=== PATIENT | male | born 1970 | race Caucasian/White ===

== ENCOUNTER 2019-02-18 08:10 | Outpatient (CLI) ==
[2015-08-25 13:29] VITALS: BMI 35.2
--- NOTE | 2019-02-18 09:52 | MRI ---
Examination: MRI of the cervical spine without contrast 02/18/2019 Clinical information: Cervical disc degeneration. Comparison: None. TECHNIQUE: Sagittal and axial T1 and T2W imaging, sagittal STIR, coronal T2 and axial 3-D T2W sequen vickie were performed. FINDINGS: Examination is patient motion degraded. The craniocervical junction is unremarkable. The cervical spinal cord is normal in overall signal, size and morphology. There are 2 mm retrolisthese s of C3 on C4, C4 on C5, C5 on C6 and C6 on C7. There is a reverse S-shaped cervicothoracic scoliosi s. The cervical vertebral bodies are normal in height and intrinsic marrow signal intensity. Severe loss of disc height at C3-C4 through C6-C7 with discogenic endplate irregularity and ventral spondyl osis. No unusual marrow edema. No paravertebral edema is seen. At the C2-C3 level, there is a minimal disc bulge. No central spinal canal stenosis or foraminal hill nosis. At the C3-C4 level, there is a broad-based posterior disc/osteophyte complex which contacts and noemi ens the cord causing mild central spinal canal stenosis. Severe right greater than left foraminal st enosis due to uncovertebral hypertrophy. At the C4-C5 level, there is a broad-based posterior disc/osteophyte complex eccentric right which in dents the cord. There is mild-moderate central spinal canal stenosis. There is mild right facet hyp ertrophy. There is moderate right neural foraminal stenosis. At the C5-6 level, there is a broad-based posterior disc/osteophyte complex which contacts and slight ly flattens the cord causing mild central spinal canal stenosis. There is severe bilateral foraminal stenosis due to uncovertebral hypertrophy. At the C6-C7 level, there is a broad-based posterior disc/osteophyte complex which partially effaces the ventral CSF space. No significant central spinal canal stenosis. There is severe bilateral fora chelsey stenosis due to uncovertebral hypertrophy. At the C7-T1 level, there is mild left hypertrophic facet arthropathy. No central spinal canal steno sis or foraminal stenosis. Impression: 1. Multilevel degenerative spondylosis with dorsal spondylotic ridging. Mild C3-C4, mild-moderate C 4-C5, and mild C5-6 central spinal canal stenosis. Posterior disc/osteophyte complexes at C3-C4, C4- C5 and C5-6 deform the cord. 2. Multilevel foraminal stenosis as noted level by level. 3. Reverse S-shaped cervicothoracic scoliosis. Trace retrolistheses of C3 on C4, C4 on C5, C5 on C6 and C6 on C7.
--- NOTE | 2019-02-18 12:44 | DI ---
EXAM: Cervical spine three views HISTORY: Cervical disc degeneration. FINDINGS: There is mild reversal normal cervical lordosis. No fracture or loss of vertebral body he ight. No spondylolisthesis or noticeable scoliosis. Lateral masses of C1 and C2 are normally align ed and the odontoid process is intact. Mild to moderate degenerative disc disease extends throughout most of the spine most apparent at C5/C6 and C6/C7. There are anterior nearly bridging osteophytic spurs. IMPRESSION: 1. Diffuse degenerative changes of the cervical spine.
== END 2019-02-18 08:11 | disposition home or self-care (01) ==
LOC: RAD 08:10
PROVIDERS: ATTEND Pain Medicine Interventional Pain Medicine
DX: M50.31 Other cervical disc degeneration, high cervical region (principal); M50.320 Other cervical disc degeneration, mid-cervical region, unspecified level; M50.33 Other cervical disc degeneration, cervicothoracic region; M47.812 Spondylosis without myelopathy or radiculopathy, cervical region; M47.813 Spondylosis without myelopathy or radiculopathy, cervicothoracic region

== ENCOUNTER 2019-06-21 18:04 | Inpatient (IN) ==
[2019-06-21] MEDS ORDERED: VANCOMYCIN 1 GM in SODIUM CHLORIDE 250 ML IV STA (18:11)
[2019-06-21] MEDS ORDERED: ZOSYN 3.375 GM 3.375 GM in SODIUM CHLORIDE 50 ML IV STA (18:11)
--- NOTE | 2019-06-21 18:15 | ED.PDOC ---
General ED Provider: Dr. ANA LILIA MARTINEZ Chief Complaint: Wound Check Stated Complaint: 2 week history of elevated blood glucose and left foot ulcer. Time Seen by Physician: 18:10 Information Source: Patient Nursing and Triage Documentation Reviewed and Agree: Yes Does patient meet sepsis criteria?: No System Inflammatory Response Syndrome: Not Applicable Sepsis Protocol: For patient's 13 years and over: Temp is 96.8 and below OR 101 and greater Pulse >90 BPM Resp >20/minute Acutely Altered Mental Status Are patient's symptoms suggestive of a new infection, such as: -Pneumonia -Skin, Soft Tissue -Endocarditis -UTI -Bone, Joint Infection -Implantable Device -Acute Abdominal Infection -Wound Infection -Meningitis -Blood Stream Catheter Infection -Unknown Skin Complaint Exam - Skin/Soft Tissue Complaint/Exam Onset/Duration: 2 weeks Symptoms Are: Still present Timing: Constant Initial Severity: Mild Current Severity: Mild Location: Right ball of foot planta surface Character: Reports: Painful (only mild ) Aggravating: Reports: Touch Associated Signs and Symptoms: Reports: Drainage (mild ) Related History: Denies: Similar episode, Recent trauma, Foreign body, Insect bite/sting, Recent Med change, Prior MRSA/VRE, Recent inpatient, Recent travel, Immunocompromised Recent Exposure to Others w/Similar Symptoms: No Skin Findings: Present: Erythema (on the lower leg ), Wet ulceration (Measuring 3 cm in diameter with surrounding masarasion of about 1.5 cm insize. No significant tenderness. No increased drainage with palpation. ) Differential Diagnoses: Cellulitis, Infection, Other (Diabetic foot ulcer. ) Review of Systems - Review Of Systems Constitutional: Reports: No symptoms Eyes: Reports: No symptoms Ears, Nose, Mouth, Throat: Reports: No symptoms Respiratory: Reports: No symptoms Cardiac: Reports: No symptoms GI: Reports: No symptoms : Reports: No symptoms Musculoskeletal: Reports: No symptoms Skin: Reports: Lesions Neurological: Reports: Anxiety Endocrine: Reports: No symptoms Hematologic/Lymphatic: Reports: No symptoms All Other Systems: Reviewed and Negative Past Medical History - Past Medical History Endocrine: Reports: None Cardiovascular: Reports: None Respiratory: Reports: Other (facial injury) Hematological: Reports: None Gastrointestinal: Reports: None Genitourinary: Reports: None Neuro/Psych: Reports: Other (Traumatic brain injury with reconstruction.) Musculoskeletal: Reports: None Cancer: Reports: None Other Pertinent Past Medical History: claritin, aleve, tylenol, Traumatic brain injury with reconstruction. - Surgical History General Surgical History: Reports: Other (Traumatic brain injury with facial reconstruction.) - Family History Family History: Reports: Unknown - Social History Smoking Status: Current every day smoker, Light tobacco smoker Hx Substance Use: No Alcohol Screening: Heavy Physical Exam - Physical Exam Appearance: Ill-appearing Ill-appearing: Moderate Pain Distress: Mild Eyes: NISHA, EOMI, Conjunctiva clear Neck: Supple Respiratory: Airway patent, Breath sounds clear, Breath sounds equal, Respirations nonlabored Cardiovascular: RRR, Pulses normal, No rub, No murmur GI/: Soft, Nontender, No masses, Bowel sounds normal, No Organomegaly Musculoskeletal: Normal strength, ROM intact, No edema, No calf tenderness Skin: Warm, Dry Neurological: Alert, Oriented Psychiatric: Anxious Re-Evaluation - Re-Evaluation Status: Improved Vital Signs Stable: Yes Physician Notification - Case Discussed Physician Notified: Dr Lilly Critical Care Note - Critical Care Note Total Time (mins): 60 Course - Course Hematology/Chemistry: 06/22/19 05:00 06/22/19 05:00 Orders, Labs, Meds: Lab Review 06/21/19 06/21/19 06/21/19 18:28 18:28 18:28 WBC 11.41 H RBC 4.57 L Hgb 14.5 Hct 42.7 MCV 93.4 MCH 31.7 H MCHC 34.0 RDW Coeff of Eddie 12.2 Plt Count 327 Immature Gran % (Auto) 0.3 Neut % (Auto) 63.0 Lymph % (Auto) 25.0 Avery % (Auto) 6.6 Eos % (Auto) 4.1 Baso % (Auto) 1.0 Immature Gran # (Auto) 0.0 Neut # (Auto) 7.2 H Lymph # (Auto) 2.9 Avery # (Auto) 0.8 Eos # (Auto) 0.5 Baso # (Auto) 0.1 ESR Sodium 137.7 Potassium 3.93 Chloride 102.9 Carbon Dioxide 28.0 Anion Gap 10.73 BUN 12.0 Creatinine 0.63 Estimated GFR (MDRD) 135.00 BUN/Creatinine Ratio 19.04 Glucose 180.9 H Hemoglobin A1c Lactic Acid Calcium 8.97 Total Bilirubin 0.45 AST 43.1 ALT 32.8 Alkaline Phosphatase 129.8 H C-Reactive Prot, Quant Total Protein 7.67 Albumin 3.98 Globulin 3.69 Albumin/Globulin Ratio 1.07 Procalcitonin < 0.05 06/21/19 06/21/19 06/21/19 18:28 18:28 18:28 WBC RBC Hgb Hct MCV MCH MCHC RDW Coeff of Eddie Plt Count Immature Gran % (Auto) Neut % (Auto) Lymph % (Auto) Avery % (Auto) Eos % (Auto) Baso % (Auto) Immature Gran # (Auto) Neut # (Auto) Lymph # (Auto) Avery # (Auto) Eos # (Auto) Baso # (Auto) ESR 38 H Sodium Potassium Chloride Carbon Dioxide Anion Gap BUN Creatinine Estimated GFR (MDRD) BUN/Creatinine Ratio Glucose Hemoglobin A1c 8.82 H Lactic Acid 1.21 Calcium Total Bilirubin AST ALT Alkaline Phosphatase C-Reactive Prot, Quant Total Protein Albumin Globulin Albumin/Globulin Ratio Procalcitonin 06/21/19 18:53 WBC RBC Hgb Hct MCV MCH MCHC RDW Coeff of Eddie Plt Count Immature Gran % (Auto) Neut % (Auto) Lymph % (Auto) Avery % (Auto) Eos % (Auto) Baso % (Auto) Immature Gran # (Auto) Neut # (Auto) Lymph # (Auto) Avery # (Auto) Eos # (Auto) Baso # (Auto) ESR Sodium Potassium Chloride Carbon Dioxide Anion Gap BUN Creatinine Estimated GFR (MDRD) BUN/Creatinine Ratio Glucose Hemoglobin A1c Lactic Acid Calcium Total Bilirubin AST ALT Alkaline Phosphatase C-Reactive Prot, Quant 10 Total Protein Albumin Globulin Albumin/Globulin Ratio Procalcitonin Orders Category Date Time Status ACTIVITY .Up ad Corina CARE 06/21/19 19:50 Active BLOOD GLUCOSE MONITORING 0630,1100,1700,2100 CARE 06/21/19 19:50 Active GIVE HS SNACK 2100 CARE 06/21/19 19:52 Active INCISION/WOUND CARE Q12HR CARE 06/21/19 19:49 Active INTAKE & OUTPUT Q8HR CARE 06/21/19 19:50 Active VITAL SIGNS Q8HR CARE 06/21/19 19:50 Active ADA 1800 SUZANNE. DIET DIETARY 06/21/19 Breakfast Completed HS SNACK DIETARY 06/21/19 Dinner Completed ED APPLY O2 .ONCE EMERGENCY 06/21/19 18:12 Active ED ATTENDANT ARCADE APPLIED .ONCE EMERGENCY 06/21/19 18:12 Active ED VITAL SIGNS Q1HR EMERGENCY 06/21/19 18:12 Completed BASIC METABOLIC PANEL DAILY@0600 LAB 06/22/19 05:00 Completed BLOOD CULTURE Stat LAB 06/21/19 18:28 Results C-REACTIVE PROTEIN Stat LAB 06/21/19 18:53 Completed CBC W/ AUTO DIFF DAILY@0600 LAB 06/22/19 05:00 Completed CBC W/ AUTO DIFF Stat LAB 06/21/19 18:28 Completed COMPREHENSIVE METABOLIC PANEL Stat LAB 06/21/19 18:28 Completed ESR Stat LAB 06/21/19 18:28 Completed HEMOGLOBIN A1C Stat LAB 06/21/19 18:28 Completed LACTIC ACID Stat LAB 06/21/19 18:28 Completed POS BC ID AND VINICIO Stat LAB 06/21/19 18:53 Received PROCALCITONIN Stat LAB 06/21/19 18:28 Completed Acetaminophen [Tylenol] MEDS 06/21/19 19:49 Discontinued 650 mg PO Q4H PRN Enoxaparin Sodium [Lovenox] MEDS 06/22/19 09:00 Discontinued 40 mg SUBCUT DAILY Insulin Glargine,Hum.rec.anlog [Lantus] MEDS 06/21/19 21:00 Discontinued 10 unit SUBCUT BEDTIME Metformin HCl [Glucophage] MEDS 06/21/19 20:00 Discontinued 500 mg PO BIDWM Ondansetron HCl/Pf [Zofran 4 mg/2 ml] MEDS 06/21/19 19:49 Discontinued 4 mg IVP Q6H PRN Oxycodone-Acetaminophen 10-325 [Percocet 10-325] MEDS 06/21/19 19:53 Discontinued 0 tab PO TID PRN Piperacillin Sodium/Tazobactam [Zosyn 3.375 gm] 3.375 MEDS 06/21/19 18:11 Discontinued gm 0.9 % Sodium Chloride [Sodium Chloride] 50 ml IV ONCE Sodium Chloride 0.9% [Sodium Chloride] 1,000 ml MEDS 06/21/19 20:00 Discontinued IV 150 mls/hr Vancomycin HCl [Vancomycin] 1 gm MEDS 06/21/19 18:11 Discontinued 0.9 % Sodium Chloride [Sodium Chloride] 250 ml IV ONCE RESUSCITATION STATUS Routine OTHERS 06/21/19 19:[address] FOOT LEFT WITHOUT CONTRAST Stat RADS 06/21/19 18:19 Completed FOOT, LEFT 3 VIEWS Stat RADS 06/21/19 19:04 Completed Medications Discontinued Medications Generic Name Dose Route Start Last Admin Trade Name Lo PRN Reason Stop Dose Admin Acetaminophen 650 mg 06/21/19 19:49 Tylenol PO Q4H PRN Fever > 102 Diazepam 5 mg 06/21/19 21:41 06/21/19 22:30 Valium PO 06/21/19 21:42 5 mg ONCE STA Administration Enoxaparin Sodium 40 mg 06/22/19 09:00 06/22/19 08:40 Lovenox SUBCUT Not Given DAILY VENKAT Piperacillin Sod/Tazobactam 50 mls @ 50 mls/hr 06/21/19 18:11 06/21/19 20:58 Sod 3.375 gm/ Sodium Chloride IV 06/21/19 19:10 50 mls/hr ONCE STA Administration Vancomycin HCl 1 gm/ Sodium 250 mls @ 250 mls/hr 06/21/19 18:11 06/21/19 19: 04 Chloride IV 06/21/19 19:10 250 mls/hr ONCE STA Administration Sodium Chloride 1,000 mls @ 150 mls/hr 06/21/19 20:00 06/22/19 08:43 Sodium Chloride IV Not Given .Q6H40M VENKAT Cefepime HCl 2 gm/ Sodium 50 mls @ 50 mls/hr 06/21/19 22:30 06/22/19 04:27 Chloride IV 06/28/19 22:29 50 mls/hr Q8HR VENKAT Administration Vancomycin HCl 2 gm/ Sodium 500 mls @ 125 mls/hr 06/22/19 06:00 06/22/19 06: 00 Chloride IV 06/25/19 05:59 125 mls/hr Q12H VENKAT Administration Vancomycin HCl 2 gm/ Sodium 500 mls @ 125 mls/hr 06/22/19 21:00 Chloride IV 06/25/19 05:59 Q12HR VENKAT CEFEPIME 2 GM PREMIX 2 gm/ 50 mls @ 75 mls/hr 06/22/19 13:00 Dextrose IV 06/28/19 22:29 Q8HR VENKAT Insulin Glargine 10 unit 06/21/19 21:00 06/21/19 21:49 Lantus SUBCUT 10 unit BEDTIME VENKAT Administration Lisinopril 20 mg 06/22/19 09:00 06/22/19 08:40 Zestril PO 20 mg DAILY VENKAT Administration Metformin HCl 500 mg 06/21/19 20:00 06/22/19 08:40 Glucophage PO 500 mg BIDWM VENKAT Administration Nicotine 1 patch 06/21/19 22:00 06/22/19 10:05 Nicoderm 21 Mg TD 1 patch DAILY VENKAT Administration Ondansetron HCl 4 mg 06/21/19 19:49 Zofran 4 Mg/2 Ml IVP Q6H PRN Nausea / Vomiting Oxycodone/Acetaminophen 0 tab 06/21/19 19:53 Percocet 10-325 PO TID PRN severe pain Oxycodone/Acetaminophen 1 tab 06/21/19 22:13 Percocet 10-325 PO TID PRN severe pain Tetanus/Diphtheria Toxoids Adsorbed 0.5 ml 06/22/19 08:53 06/22/19 09:46 Tenivac IM 06/22/19 08:54 0.5 ml .ONCE ONE Administration Vital Signs: Temp Pulse Resp BP Pulse Ox 06/21/19 18:05 97.3 F L 92 H 20 153/89 H 6 L Departure - Departure Time of Disposition: 19:54 Disposition: ADMITTED INPATIENT Discharge Problem: Wound of foot, Cellulitis of left lower limb Diabetes mellitus Qualifiers: Diabetes mellitus type: type 2 Diabetes mellitus shelter insulin use: without dedicated intermodal truck driver use Diabetes mellitus complication status: with skin complications Diabetes mellitus complication detail: with foot ulcer Qualified Code(s): E11.621 - Type 2 diabetes mellitus with foot ulcer Condition: Stable Pt referred to PMD for follow-up: Yes IPMP verified?: No Allergies/Adverse Reactions: Allergies No Known Allergies Allergy (Verified 06/21/19 18:18) Home Medications: Ambulatory Orders Loratadine/Pseudoephedrine [Claritin-D 24 Hour Tablet] 1 each PO DAILY #30 tab.er.24h 08/25/15 Oxycodone HCl/Acetaminophen [Percocet 10-325 mg Tablet] 1 each PO TID PRN Amoxicillin/Potassium Clav [Augmentin 875-125 Tablet] 1 each PO BID 7 Days #14 tablet 06/22/19 Aspirin [Aspirin EC] 81 mg PO DAILY 30 Days #30 tablet. 06/22/19 Atorvastatin Calcium [Lipitor] 40 mg PO DAILY 30 Days #30 tablet 06/22/19 Ertugliflozin Pidolate [Steglatro] 5 mg PO DAILY 30 Days #30 tablet 06/22/19 Lisinopril/Hydrochlorothiazide [Zestoretic 20-12.5 mg Tablet] 1 each PO DAILY 30 Days #30 tablet 06/22/19 Metformin HCl 1,000 mg PO DIRECTED 30 Days #60 tablet 06/22/19 Nicotine 21 mg [Nicoderm 21 mg] 1 patch TD DAILY 14 Days #14 patch.td24 Sulfamethoxazole/Trimethoprim [Bactrim Ds 800/160 mg] 1 tab PO BID 7 Days #14 tablet 06/22/19
[2019-06-21 18:18] VITALS: BMI 31.5
--- NOTE | 2019-06-21 19:32 | CT ---
EXAM: Helical CT of the left foot without contrast. HISTORY: Diabetic foot ulcer, possible deep tissue injury COMPARISON: Foot radiographs from same day. FINDINGS: Remote destructive/erosive changes are seen centered at the fifth DIP joint. The cortical margins of the bony deformity appears smooth. Shown to better advantage on same day foot radiograph. No evidence of displaced fracture or dislocation is seen. Joint spaces and alignment appear grossl y preserved. Ankle mortise appears congruent. The talar dome has a normal contour. Mild soft tissue swelling at the ankle is seen. No evidence of focal fluid collection is seen. No evidence of subcu taneous gas is seen. OPINION: Chronic-appearing osseous erosion/destruction at the fifth DIP joint with smooth cortical margins. C orrelate with old injury or infection. Comparison with prior imaging would be helpful. If there is concern for acute osteomyelitis. Recommend MRI for further evaluation. No displaced fracture or dislocation. Mild soft tissue swelling at the ankle.
--- NOTE | 2019-06-21 19:48 | DI ---
EXAM: Left foot three views HISTORY: Abnormal CT, wound on foot. FINDINGS / IMPRESSION: There is absence of the distal aspect of the fifth proximal phalanx which ma y be related to old injury. An infectious destructive process at this level is not excluded. No kasey or studies were available for comparison. 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 No gross soft tissue gas collection or radiopaque foreign body.
[2019-06-21] MEDS ORDERED: ZOFRAN 4 MG/2 ML IVP PRN (19:49)
[2019-06-21] MEDS ORDERED: TYLENOL PO PRN (19:49)
[2019-06-21] MEDS ORDERED: PERCOCET 10-325 PO PRN ×2 (19:53→22:13)
[2019-06-21] MEDS: SODIUM CHLORIDE 1,000 ML IV SCH (20:38)
[2019-06-21] MEDS ORDERED: LANTUS SUBCUT SCH (21:00)
--- NOTE | 2019-06-21 21:00 | PCM ---
- Chief Complaint Chief Complaint: New onset Diabetes, Diabetes foot ulcer. - History of Present Illness History of Present Illness: 49 yo male presented to ED for wound check 18:13 06/21/[address] Macias. No primary provider. Arrived via ambulatory status, infromation obtained from patient. Vitals in ED were temp 97.3, pulse 92, rr 20, bp 153/89, pulse ox 96% on RA (accidental 6%). CBC mild elevation with 11.41, hgb 14.5, plt 327, neutrophilia listed at 7.2 CMP showed sodium 137.7, K+ 3.93, cl 102,9 , co2 28, gap 10.73, cr 0.63, gfr 135, glucose 180.9, Lactate negative at 1.21, Procalcitonin negative at <.05. Calcium normal 8.97. Alk phos up minimally at 129.8. ESR was up at 38 and A1C 8.82. Patient never dx w/ diabetes before, newly diagnosed today with a1c >6.5. He was found to have a wound on the right ball of the foot plantar surface, painful minimally, aggravated by touch and by pressure, draining, still present currently. No previou sissues/episodes, no trauma, no foreign bod, no bites/stings, no med changes, no history of MRSA historically. The patient has erythema of the lower leg, wet ulceration 3cm diameter, macerated 1.5 cm beyond that. No tenderness, no drainage/palpation. DDx in ED cellulitis vs infection of DM foot ulcer. History of TBI with reconstruction of face. Current light tobacco user. Vitals did not meet SIRS criteria, nor did the WBC. He was given tylenol in ED, lovenox was given for hosptial stay. I was contacted by DR. Macias at 1945 and discussed case 1:1. Patient will get 10 units of lantus tonight. He will also get metformin 500 BID to start now. CT of foot was done and reviewed and chronic appearing ossesous erosion/destruction of the fifth DIP joint with smooth cortical margins. Correlate with old injury or infection. Comparison with prior iamging would be helpful. IF there is concern for acute osteomyelitis recommend MRI for further eval. Xray of foot was completed absence of distal aspect of fifth proximal phalanx may be old injury. Infectious destructive process not excluded. No previous studies. Mild OA of IP joints. NO gross soft tissue gas or foreign body noted. Patient was given percocet 10 po TID for pain, he was given zosyn 3.375 grams and vanco 1 gram in the ED. Due to risks on renal function, I will stop the zosyn and I will change him to cefepime 2grams q 8 hours and continue vanco 1gram BID (15-20mg/kg q 8-12 hours). I will make sure wound cultures are collected, will likely d/c on bactrim DS and augmentin 875 BID to cover for staph/strep, MRSA, aerobic gram negatives and anaerobic bacteria. He will need close f/u, diabetic education, glucometer, walking boot to offload that foot, outpatient referral to podiatry and likely wound care. Regarding DM, I believe that he would benefit from SGLT2 and from GLP1 with metformin, I will add lisinopril to him as his BP is mildly elevated as well. We will check microalbumin. I will make sure that his tetanus status is up to date. He has declined pneumonia vaccine despite R/B/A to this agent. We will also check a lipid panel in the am and likely start him on statin. Patient seen in room 216 06/21/19 9:12 pm. Here with tameka (mariannaece), her daughter brenna and partner Hazel. Patient has been diabetic for a while. follows with pain management q 3 months. Last visit here was 2013 or 2014. The patient met with a provider in [place] but could not remember her name. He met with them 2 years ago for DM but never f/u with them. He has history of TBI with reconstruction. the patietn has never been dx with diabetes. He has been checking his sugars. Fasting sugars in the am 230. Niece found about his ulcer on his left foot today but it has been present for 2 weeks. He smokes about 1 pack per day. He is not interested in quitting, he is not interested in nicotine patches. I asked him what he thought about his health and he is unreal about his expectations. The patient and I talked about the lack of circulation, the poor sugar control, will lead to loss of toe/foot/knee. Discussed nicotine at length. He noted several times "I will go out and smoke no matter what you say." I discussed we are smoke free campus and noted that if he leaves to smoke, we would consider him AMA. He noted he did not care and he would leave anyway. I talked with them for 15 minutes today about need to think about overall health, foot health, diabetes, HTN. He just lost his twin brother to DM/HTN/Hyperlipidemia. ?H/o Seizures. I discussed need for compliance, need for being on board with medical therapy. He noted that he was not going to quit smoking no matter what I said and he would go smoke now. I discussed that tobacco issues have led to his foot care. He was not able to care about this and did not want to focus on his overall health. After leaving room, niece came out and noted that if I gave a valium and a nicotine patch he would take the patch and try to stay. I placed these orders in good-alex effort to help patient. We will get foot culture, we will place 21mg nicotine patch, valium 5mg once. He noted he will leave this hospital to smoke if he feels he needs to. - Review of Systems Constitutional: chills, fatigue. No: fever, weakness, sweats, loss of appetite , other Eyes: No: blurred vision, double-vision, discharge, itching, pain, redness, photophobia, other Ears: No: pain, bleeding, drainage, ringing, hearing loss, other Nose: No: bleeding, congestion, discharge, other Throat: No: pain, swelling, voice change, other Mouth: No: bleeding, pain, swelling, other Respiratory: No: cough, shortness of air, wheeze, hemoptysis, pain with breathing, other Cardiovascular: No: chest pain, left arm pain, diaphoresis, PND, orthopnea, edema, palpitations, syncope, other Gastrointestinal: nausea. No: abdominal pain, vomiting, diarrhea, melena, hematemesis, hematochezia, dysphagia, constipation, other Genitourinary: No: dysuria, hematuria, frequency, incontinence, flank pain, penile discharge, testicular pain, testicular swelling, other Neurological: headache, dizziness, numbness. No: seizure, weakness, speech difficulty, problems with walking, tremor, fainting, other Musculoskeletal: pain. No: swelling in joints, other Skin: wounds. No: rash, pruritus, lacerations, bruising, other Immunology: No: hives, itching, frequent infections, difficulty healing, other Hematology: No: easy bruising, easy bleeding, swollen glands, other Endocrine: excessive thirst, polyuria. No: weight changes, cold intolerance, heat intolerance, excessive hunger, other Psychiatric: No: depression, anxiety, sleeplessness, hopelessness, suicidal, hallucinations, other Habits: tobacco use. No: substance use, alcohol use, other - Past Medical History Past Medical History: Hyperglycemia, TBI with facial reconstruction, chronic tobacco, elevated blood pressure. ?h/o seizures. Poor health, non compliance. dizzy spells, LAYNE, migraines, light sensitivity. Short term memory loss. - Past Surgical History Past Surgical History: TBI with reconstruction. - Allergies Allergies/Adverse Reactions: Allergies Allergy/AdvReac Type Severity Reaction Status Date / Time No Known Allergies Allergy Verified 06/21/19 18:18 - Medications Medications: Medications Generic Name Dose Route Start Last Admin Trade Name Freq PRN Reason Stop Dose Admin Acetaminophen 650 mg 06/21/19 19:49 Tylenol PO Q4H PRN Fever > 102 Enoxaparin Sodium 40 mg 06/22/19 09:00 Lovenox SUBCUT DAILY [facility] Piperacillin Sod/Tazobactam 50 mls @ 50 mls/hr 06/22/19 00:00 Sod 3.375 gm/ Sodium Chloride IV 06/25/19 00:00 Q6HR VENKAT Vancomycin HCl 1 gm/ Sodium 250 mls @ 125 mls/hr 06/22/19 09:00 Chloride IV 06/25/19 08:59 Q12HR VENKAT Sodium Chloride 1,000 mls @ 150 mls/hr 06/21/19 20:00 06/21/19 20:38 Sodium Chloride IV 150 mls/hr .Q6H40M VENKAT Administration Insulin Glargine 10 unit 06/21/19 21:00 Lantus SUBCUT BEDTIME VENKAT Metformin HCl 500 mg 06/21/19 20:00 Glucophage PO BIDWM VENKAT Ondansetron HCl 4 mg 06/21/19 19:49 Zofran 4 Mg/2 Ml IVP Q6H PRN Nausea / Vomiting Oxycodone/Acetaminophen 0 tab 06/21/19 19:53 Percocet 10-325 PO TID PRN severe pain - Family History Past Family History: Twin brother recently wiht DM/HTN/hyperlipidemia. - Social History Past Social History: Lives at home alone with bull dog Andres. Tobacco use 1 ppd. - Body Composition Height: 6 ft 1 in Weight: 238 lb 12.17 oz Body Mass Index (BMI): 31.5 - Physical Examination HEENT: Vital Signs - 24 hr 06/21/19 06/21/19 06/21/19 18:05 20:17 21:43 Temperature 97.3 F L 98.0 F 98.0 F Pulse Rate 92 H 85 85 Respiratory 20 20 20 Rate Blood Pressure 153/89 H 176/97 H O2 Sat by Pulse 6 L 99 99 Oximetry 06/22/19 05:14 Temperature 97.9 F Pulse Rate 84 Respiratory 18 Rate Blood Pressure 164/93 H O2 Sat by Pulse 98 Oximetry Constitutional: Appearance-No acute distress, Consistent with stated age. Orientation- Oriented x 3, alertGait-Normal pace, normal arm movement. Build and Nutrition-[Obese BMI 31.5. ] General- Patient is pleasant and cooperative with the interview and exam.Numerous tattoo. Integumentary: General-No rashes, ulcers or lesions. Palpation- Normal skin moisture/turgor. Skin is warm to touch, appropriate. Capillary refill is normal bilateral Upper and lower extremity. Numerous Tattoo. Head/Neck: Head- normocephalic and atraumatic. Neck- without visible/palpable lumps or pulsations. Palpation- No bony tenderness about head/neck along frontal, occipital, temporal, parietal, mastoid, jawline, zygoma, orbit or any other location. NO temporal artery tenderness. No TMJ tenderness. Neck Supple. Thyroid-No thyromegaly, no nodules Eye: Bilaterally PERRLA, EOMI. No discharge. Upper and lower eyelids are normal. Sclera/conjunctiva normal without discharge. Cornea is normal and clear. Lens is normal. Eyeball appears normal. No ciliary flushing, no conjunctival injection. +Glasses ENMT: Pinna- normal without tenderness or erythema. External auditory canal Left- normal without erythema or discharge, no excessive cerumen. External auditory canal Right-normal without erythema or discharge, no excessive cerumen. TM left- [place]/pearly, normal light reflex and anatomy TM Right- [place]/ pearly, normal light reflex and anatomy Hearing Assessment-normal to conversational speech. Nose and sinus- No sinus tenderness along frontal/ maxillary region. External appearance normal and midline. Nares- bilateral quiet airflow, no discharge. Nasal mucosa- No bleeding noted and no ulcerations observed. [place], moist. Turbinates non boggy. Lips- normal color, moist without cracks/lesions Oral Cavity/Palate- hard/soft palate intact without lesions, oral mucosa pink and moist. Tongue normal midline. Oropharynx- no pharyngeal erythema, Uvula midline. No post nasal drip. No exudate. Salivary glands- Non tender to palpation CHEST/LUNG: Inspection- symmetric chest wall no pectus deformity. Normal effort , no distress, no use of accessory muscles. Palpation- nontender sternum, ribline. No abnormal pulsations. Auscultation- Breath sounds normal throughout all lung [place]. Normal tracheal sounds, Normal bronchial sounds overlying sternum, Bronchovessicular sounds normal between scapulae posteriorly, Normal vessicular breath sounds heard throughout periphery. Lungs are clear today. Adventitious sounds- No wheezes, rales, rhonchi. CARDIOVASCULAR: Carotid artery- normal, no bruits or abnormal pulsations. Jugular vein- no pulsations. Palpation/Percussion- Normal PMI, no palpable thrill Auscultation- Regular rate and rhythm. No murmur noted in sitting, supine positions. Extremities- no digital clubbing, cyanosis, edema, increased warmth. ABDOMEN: Inspection- normal and no visible pulsations. Normal contour. Auscultation- Bowel sounds normal, no abdominal bruits. Palpation/Percussion- soft, non-tender, no rebound tenderness, no rigidity (guarding), no jar tenderness, no masses. Liver-no hepatomegaly, Spleen no splenomegaly, Hernias - none. Rectal not examined. Peripheral Vascular: Upper extremity Left- Normal temperature with pink nailbeds and no ulcerations. Upper extremity Right- Normal temperature with pink nailbeds and no ulcerations. Lower extremity- Normal temperature with pink nailbeds and no ulcerations. Decreased goldman hair/decreased pedal hair. stasis dermatitis along left anterior goldman. DP pulses 1+ bilaterally. Decreased monofilament 10/10. capillary refill normal. Ulcer base of left digit 1 with 3cm diameter and 5 cm total maceration/involvement. Edema- No edema. Musculoskeletal: Generalized-No generalized swelling or edema of extremities, no digital clubbing or cyanosis, neurovascularly intact all four extremities. Upper extremity- Symmetrical posture. No visible deformity. Normal sensation along medial and lateral upper extremity proximally and distally. NO tenderness overlying shoulder, lateral/medial epicondyle. Supervising Editor Trailer 5/5 and strength 5/5 bilateral UE. Elbow palpated, no tenderness overlying olecranon. Normal supination, pronation to active/passive ROM and to resisted rotation. Bicep insertion/tricep insertion appear normal without obvious pathology. Rotator cuff evaluated and intact. Normal wrist ROM bilaterally. Normal hand movement, intrinsic muscles of hands normal. No tenderness to palpation of hands/wrists/ elbows. Lower extremity- Hip: Not tender to palpation, no pain, no swelling, edema or erythema of surrounding tissue, normal strength and tone. Normal appearing hip ROM bilaterally without pain. Knee: Knee ROM normal. No tenderness overlying trochanters, no tenderness about patella, quad tendon, patellar tendon. No tenderness at tibial tuberosity. Ankle: normal ROM not tender to palpation along medial/lateral malleolus. Foot: Normal movement of toes, no tenderness bilateral feet/toes. Normal foot type. Spine/Ribs- No deformities, masses or tenderness, no known fractures, normal strength, Normal ROM. Normal stability No tenderness along C/T/L spine. Normal appearing ROM about spine. Neurological: General- Moves all 4 extremities symmetrically. Symmetrical face and body posture. Cranial nerves- individually evaluated II-XII and intact. PERRLA, Normal EOMI, visual/special senses appear intact, Face is symmetrical and normal sensation/movement, normal tongue, normal strength/posture of neck musculature. Reflexes- intact with DTR 2+ patellar, Achilles, bicep, brachial, tricep. Ankle clonus normal with 2 beats. Strength- 5/5 bilateral UE and LE. Soft touch- intact bilateral UE and LE. Temperature sensation- intact bilateral UE and LE. Neuropsych: Oriented- Person, place, time. (AAOx3), Mood/affect- Angry, wants to smoke, not interested in quitting. Mad that I talked about it. Denial about his overall health. He seems to be stubborn about the nicotine as he can control that aspect. Speech-Normal speech, normal rate, normal tone, reduced use of language, volume and coherence. Thought content- Mildly reduced/ limited. Associations- intact, no SI/HI, no hallucinations, delusions, obsessions. Not interested in dying. Judgment/insight- Questionable Knowledge - Questionable, but seems to have age appropriate fund of knowledge, concentration and attention span normal. Lymphatic: Head/Neck- normal size and non tender to palpation. Axillary- normal size and non tender to palpation. Femoral and Inguinal- normal size and non tender to palpation. - Lab/Tests/Diagnostic Imaging Lab/Tests/Diagnostic Imaging: Laboratory Last Values WBC 11.41 K/ul (4.2-10.2) H 06/21/19 18: RBC 4.57 10^6/ul (4.70-6.10) L 06/21/19 18: Hgb 14.5 g/dl (14.0-18.0) 06/21/19 18: Hct 42.7 % (42.0-52.0) 06/21/19 18: MCV 93.4 fl (80.0-94.0) 06/21/19 18: MCH 31.7 pg (27.0-31.0) H 06/21/19 18: MCHC 34.0 (31.8-35.4) 06/21/19 18: RDW Coeff of Eddie 12.2 % (11.6-14.8) 06/21/19 18: Plt Count 327 10^3/uL (140-440) 06/21/19 18: Immature Gran % (Auto) 0.3 % (0.0-5.0) 06/21/19 18: Neut % (Auto) 63.0 06/21/19 18: Lymph % (Auto) 25.0 (10.0-50.0) 06/21/19 18: [place] % (Auto) 6.6 (0-10) 06/21/19 18: Eos % (Auto) 4.1 % (0.0-7.0) 06/21/19 18: Baso % (Auto) 1.0 % (0.0-3.0) 06/21/19 18: Immature Gran # (Auto) 0.0 (0.0-1.0) 06/21/19 18:28 Neut # (Auto) 7.2 K/ul (2.0-6.9) H 06/21/19 18:28 Lymph # (Auto) 2.9 K/uL (0.60-3.4) 06/21/19 18:28 [place] # (Auto) 0.8 K/uL (0.4-2.0) 06/21/19 18:28 Eos # (Auto) 0.5 K/ul (0.0-0.7) 06/21/19 18:28 Baso # (Auto) 0.1 K/uL (0-0.2) 06/21/19 18:28 ESR 38 mm/hr (0-15) H 06/21/19 18:28 Sodium 137.7 mmol/L (134.5-145) 06/21/19 18:28 Potassium 3.93 mmol/L (3.5-5.1) 06/21/19 18: Chloride 102.9 mmol/L (98-107) 06/21/19 18: Carbon Dioxide 28.0 mmol/L (22-30.0) 06/21/19 18: Anion Gap 10.73 06/21/19 18:28 BUN 12.0 mg/dL (9-20) 06/21/19 18:28 Creatinine 0.63 mg/dL (0.60-1.10) 06/21/19 18: Estimated GFR (MDRD) 135.00 mL/min 06/21/19 18: BUN/Creatinine Ratio 19.04 06/21/19 18: Glucose 180.9 mg/dL (74-106) H 06/21/19 18:28 Hemoglobin A1c 8.82 (4.0-6.0) H 06/21/19 18:28 Lactic Acid 1.21 mmol/L (0.7-2.1) 06/21/19 18:28 Calcium 8.97 mg/dL (8.4-10.2) 06/21/19 18:28 Total Bilirubin 0.45 mg/dL (0.2-1.3) 06/21/19 18:28 AST 43.1 U/L (17-59) 06/21/19 18:28 ALT 32.8 U/L (0-50) 06/21/19 18:28 Alkaline Phosphatase 129.8 U/L (38-126) H 06/21/19 18:28 Total Protein 7.67 g/dL (6.3-8.2) 06/21/19 18:28 Albumin 3.98 g/dL (3.5-5.0) 06/21/19 18:28 Globulin 3.69 06/21/19 18:28 Albumin/Globulin Ratio 1.07 06/21/19 18:28 Procalcitonin < 0.05 ng/mL (<0.05) 06/21/19 18:28 CT of foot was done and reviewed and chronic appearing ossesous erosion/ destruction of the fifth DIP joint with smooth cortical margins. Correlate with old injury or infection. Comparison with prior iamging would be helpful. IF there is concern for acute osteomyelitis recommend MRI for further eval. Xray of foot was completed absence of distal aspect of fifth proximal phalanx may be old injury. Infectious destructive process not excluded. No previous studies. Mild OA of IP joints. NO gross soft tissue gas or foreign body noted. - Assessment (1) Diabetes mellitus Status: Acute Code(s): E11.9 - TYPE 2 DIABETES MELLITUS WITHOUT COMPLICATIONS SNOMED Code(s): 74767120 Qualifiers: Diabetes mellitus type: type 2 Diabetes mellitus terminal block assembler insulin use: without penitentiary use Diabetes mellitus complication status: with skin complications Diabetes mellitus complication detail: with foot ulcer Qualified Code(s): E11.621 - Type 2 diabetes mellitus with foot ulcer; L97.509 - Non-pressure chronic ulcer of other part of unspecified foot with unspecified severity (2) Wound of foot Status: Acute Code(s): S91.309A - UNSPECIFIED OPEN WOUND, UNSPECIFIED FOOT, INITIAL ENCOUNTER SNOMED Code(s): 498135376, 697687397 (3) Stasis dermatitis Status: Acute Code(s): I87.2 - VENOUS INSUFFICIENCY (CHRONIC) (PERIPHERAL) SNOMED Code(s): 36812118 (4) BMI 31.0-31.9,adult Status: Acute Code(s): Z68.31 - BODY MASS INDEX (BMI) 31.0-31.9, ADULT SNOMED Code(s): 650533482 (5) Smokes 1 pack of cigarettes per day Status: Acute Code(s): F17.210 - NICOTINE DEPENDENCE, CIGARETTES, UNCOMPLICATED SNOMED Code(s): 23614594 (6) Elevated blood pressure reading Status: Acute Code(s): R03.0 - ELEVATED BLOOD-PRESSURE READING, W/O DIAGNOSIS OF HTN SNOMED Code(s): 81146235 - Plan Plan: 1. Diabetes 2 A1C goal <7%: He has known this to be a problem for several years but in denial/neglecting care. Now with DM foot wound on base of left digit 1. He has been checking sugars. Currently uncontrolled. Reviewed Nephropathy, Retinopathy, Neuropathy status with family. Macrovascular and microvascular complications discussed. Reviewed DM provides risk equivalency to already having had a heart attack. Reviewed goals of Diabetes today. The Goal is to have an Hgb A1C <7.0 for most patients (New APC guidelines suggest 7-8% may be reasonable). For the remainder a discussion with patient about R/B/A and review of reasonable hypoglycemic symptoms is needed. Good BP control is encouraged with Goal BP based on JNC 8 guidelines 2014 of SBP <140 and DBP <90. Discussed role of Papi-I and ARB with DM. DM imparts risk equivalence for CAD based on ATP III and modern ASCVD risk scores. Current guidelines from ACC/AHA support moderate intensity statin with goal of 30-50% reduction in LDL unless 10 yr risk ASCVD >7.5 then high intensity should be used. Close monitoring of Lipid levels encouraged. Recommend once yearly eye evaluation by optometry or ophthalmology. Good foot health discussed and foot exam recommended with each visit. Recommended to monitor toe health, wear good shoes, cut nails straight across and tend calluses as listed. Take medications as encouraged. Monitor blood sugars as encouraged and bring log to future meetings. I gave him my business card and told him to contact me if he wishes to continue towards healthier options. Weight needs to be monitored. Monitor portions and caloric intake. Pneumovax frequency discussed. Patients <65 years old should have PPSV 23 q 5 years x 2 up to age 65 then once after age 65. Prevnar at age 65 and then 1 year later PPSV 23. He declined this. Recent data suggest there may be a link between metformin and B12. D/W patient to consider evaluation for b12 deficiency. We will monitor. Recommended yearly microalbumin. Yearly eye evaluation recommended, discussed importance of Papi-I and ARB. Monitor portions , goal BMI discussed. Work on regular exercise and diet to keep BMI in appropriate range with initial goal <30. - Admit Observation - CBC/BMP in am. - Continue IV abx but change zosyn/vanco to cefepime/vanco - Diabetic issues reviewed with the patient: referral to Diabetic Education department discussed, low cholesterol diet, weight control and daily exercise discussed, home glucose monitoring emphasized, all medications, side effects and compliance discussed carefully, foot care discussed and offered referral to Podiatry, annual eye examinations discussed, glycohemoglobin and other lab monitoring discussed and terminal block assembler diabetic complications discussed. - Lantus 10 units tonight - Accucheck QA HS. - A1C was 8.0. - Declined pneumonia vaccine. - Lipid panel in am. Elevated BP: Start with 20mg of lisinopril tonight. Re-eval BP by morning. - Lisinopril 20mg daily. Stasis Dermatitis: Weight loss encouraged. No e/o cellulitis on anterior leg as discussed by ED. He has no major edema but e/o chronic stasis. BMI 31.5: Discussed the federal guidelines suggest a healthy goal BMI of 18.5- 24.9 for people 18-65 and 23-30 for people age 65 and older. Overweight is considered BMI 25-30, Obesity 30-40 and Morbid obesity is defined as >100 lb overweight or BMI >40. With a BMI above goal, it is recommended to utilize a diet/exercise program to get back into the appropriate range. Consider referral to traveling storekeeper. For BMI >40 consider referral to bariatrics. If not already monitoring intake. I would recommend at least to keep a food diary. Document everything that is consumed into a food diary. Studies have shown that patients can lose up to 2x the weight by keeping track of foods. Offered handout on weight loss techniques. Apps that may be of benefit include Soraa Pal, Lose it. Regular exercise encouraged. Start with walking 5-10 minutes at a pace that is difficult to carry a conversation. If chest pain/SOA stop and f/u in office. Foot wound: Needs outpatient podiatry and wound care/debridement, possibly hyperbaric Oxygen. Will get set up with wound care and we will set up for referral to podiatry. The patient will see me in clinic in 1 week. Abx as listed. Good outpatient option would be augmentin/bactrim to cover for strep/ staph, MRSA, aerobic gram - and anaerobes. Foot health discussed, padding and appropriate shoes. HE has crutches at home. Will work on offloading the foot. - Change abx from zosyn/vanco to cefepime/vanco due to renal issues. - Wound culture. - Tetanus status unknown, update. Discussed risks/benefits to vaccination, reviewed components of the vaccine, discussed VIS, discussed informed consent, informed consent obtained. Patient was allowed to accept or refuse vaccine. Questions answered to satisfactory state of patient. We reviewed typical age appropriate and seasonally appropriate vaccinations. DVT Prophy: Recommended Lovenox. - 40mg subcut Lovenox. Diet: ADA 1800kcal Activity: UP with assist as he cannot feel his feet. Smoking 1 ppd: Tobacco Cessation discussed today for 10 minutes. We reviewed lifestyle choices and discussed quitting. Ready to quit status discussed. The risks and hazards of continued tobacco abuse were discussed with the patient today and total tobacco cessation as recommended. It was clearly and unambiguously explained that continued tobacco usage will adversely affect overall morbidity and mortality of the patient. Patient was informed that tobacco use can lead to numerous cancers, worsening of cardiovascular and pulmonary systems and that lung damage is often permanent and irreversible. I advised the patient to inform me if any further assistance is requested, as we can offer counseling services, nicotine replacement inhaled, patch, lozenge, gum, or prescription medications to include Chantix or Wellbutrin for assistance. I will reassess the interest in tobacco cessation at the next and all subsequent visits. Eventually he agreed to nicoderm. 21mg patch applied, 5mg valium given. Disposition: >70 minutes today spent on admission. Talked with patient/family. Reviewed DM as above, lipids as above, HTN as above, discussed foot care, DM sugar checking, meds to include metformin R/B/A, insulin R/B/A and that if he leaves this hospital to smoke he will be considered AMA> In that eventuality I will send augmentin 875 PO BID and bactrim DS BID x 7 days to pharmacy, metformin titration to 1000 BID and steglatro. I will still see him. Smoking is worsening his overall health.
[2019-06-21] MEDS ORDERED: VALIUM PO STA (21:41)
[2019-06-21] MEDS: GLUCOPHAGE PO SCH (21:49)
[2019-06-21] MEDS: NICODERM 21 MG TD SCH (22:28)
[2019-06-22] MEDS ORDERED: ZOSYN 3.375 GM 3.375 GM in SODIUM CHLORIDE 50 ML IV SCH ×2
[2019-06-22] MEDS ORDERED: MAXIPIME 1 GM VIAL ONE ×2 (00:22→04:21)
[2019-06-22] MEDS: MAXIPIME IV SCH ×2 (00:30→04:27)
[2019-06-22] MEDS: SODIUM CHLORIDE IV SCH ×2 (00:30→04:27)
[2019-06-22] MEDS: SODIUM CHLORIDE 1,000 ML IV SCH ×3 (04:27→08:43)
[2019-06-22 05:15] VITALS: BP 164/93; TEMP 97.9
[2019-06-22] MEDS ORDERED: VANCOMYCIN 2 GM in SODIUM CHLORIDE 500 ML IV SCH ×2 (06:00→21:00)
[2019-06-22] MEDS: GLUCOPHAGE PO SCH (08:40)
[2019-06-22] MEDS: NICODERM 21 MG TD SCH ×2 (08:41→10:05)
[2019-06-22] MEDS ORDERED: TENIVAC IM ONE (08:53)
--- NOTE | 2019-06-22 08:58 | PCM.DC ---
Final Diagnosis: (1) Diabetes mellitus Status: Acute Code(s): E11.9 - TYPE 2 DIABETES MELLITUS WITHOUT COMPLICATIONS SNOMED Code(s): 03800759 Qualifiers: Diabetes mellitus type: type 2 Diabetes mellitus detention insulin use: without rn long term care use Diabetes mellitus complication status: with skin complications Diabetes mellitus complication detail: with foot ulcer Qualified Code(s): E11.621 - Type 2 diabetes mellitus with foot ulcer; L97.509 - Non-pressure chronic ulcer of other part of unspecified foot with unspecified severity (2) Wound of foot Status: Acute Code(s): S91.309A - UNSPECIFIED OPEN WOUND, UNSPECIFIED FOOT, INITIAL ENCOUNTER SNOMED Code(s): 464454477, 013826154 (3) Stasis dermatitis Status: Acute Code(s): I87.2 - VENOUS INSUFFICIENCY (CHRONIC) (PERIPHERAL) SNOMED Code(s): 64068872 (4) BMI 31.0-31.9,adult Status: Acute Code(s): Z68.31 - BODY MASS INDEX (BMI) 31.0-31.9, ADULT SNOMED Code(s): 232971625 (5) Smokes 1 pack of cigarettes per day Status: Acute Code(s): F17.210 - NICOTINE DEPENDENCE, CIGARETTES, UNCOMPLICATED SNOMED Code(s): 81936828 (6) Elevated blood pressure reading Status: Acute Code(s): R03.0 - ELEVATED BLOOD-PRESSURE READING, W/O DIAGNOSIS OF HTN SNOMED Code(s): 64506590 (7) Mixed hyperlipidemia Status: Acute Code(s): E78.2 - MIXED HYPERLIPIDEMIA SNOMED Code(s): 020071266 Reason for Hospitalization: 1. Diabetes with hyperglcyemia 2. Foot wound base of digit 2 worsening 3. Elevated blood pressure 4. BMI 31.5. 5. Tobacco 1ppd >30 py history Prognosis at Discharge: Guarded: Uncertain that he will maintain compliance. Condition at Discharge: Stable, essentially unchanged. No further improvement through the hospitalization. Await Wound culture. Needs Wound care management Needs outpatient podiatry Needs outpatient diabetes follow-ups Needs outpatient HTN follow-ups Needs Smoking cessation outpatient. Medications at Discharge: Ambulatory Orders Medication Instructions Recorded Loratadine/Pseudoephedrine 1 each PO DAILY #30 tab.er.24h 08/25/15 [Claritin-D 24 Hour Tablet] Oxycodone HCl/Acetaminophen 1 each PO TID PRN 08/25/15 [Percocet 10-325 mg Tablet] Amoxicillin/Potassium Clav 1 each PO BID 7 Days #14 tablet 06/22/19 [Augmentin 875-125 Tablet] Aspirin [Aspirin EC] 81 mg PO DAILY 30 Days #30 06/22/19 tablet. Atorvastatin Calcium [Lipitor] 40 mg PO DAILY 30 Days #30 tablet 06/22/19 Ertugliflozin Pidolate [Steglatro] 5 mg PO DAILY 30 Days #30 tablet 06/22/19 Lisinopril/Hydrochlorothiazide 1 each PO DAILY 30 Days #30 tablet 06/22/19 [Zestoretic 20-12.5 mg Tablet] Metformin HCl 1,000 mg PO DIRECTED 30 Days 06/22/19 #60 tablet Nicotine 21 mg [Nicoderm 21 mg] 1 patch TD DAILY 14 Days #14 06/22/19 patch.td24 Sulfamethoxazole/Trimethoprim 1 tab PO BID 7 Days #14 tablet 06/22/19 [Bactrim Ds 800/160 mg] Lab/Diagnostics: Laboratory Last Values WBC 9.12 K/ul (4.2-10.2) 06/22/19 05:00 RBC 4.40 10^6/ul (4.70-6.10) L 06/22/19 05:00 Hgb 14.0 g/dl (14.0-18.0) 06/22/19 05:00 Hct 41.2 % (42.0-52.0) L 06/22/19 05:00 MCV 93.6 fl (80.0-94.0) 06/22/19 05:00 MCH 31.8 pg (27.0-31.0) H 06/22/19 05:00 MCHC 34.0 (31.8-35.4) 06/22/19 05:00 RDW Coeff of Eddie 12.0 % (11.6-14.8) 06/22/19 05:00 Plt Count 304 10^3/uL (140-440) 06/22/19 05:00 Immature Gran % (Auto) 0.3 % (0.0-5.0) 06/22/19 05:00 Neut % (Auto) 55.7 06/22/19 05:00 Lymph % (Auto) 29.5 (10.0-50.0) 06/22/19 05:00 [place] % (Auto) 8.3 (0-10) 06/22/19 05:00 Eos % (Auto) 5.2 % (0.0-7.0) 06/22/19 05:00 Baso % (Auto) 1.0 % (0.0-3.0) 06/22/19 05:00 Immature Gran # (Auto) 0.0 (0.0-1.0) 06/22/19 05:00 Neut # (Auto) 5.1 K/ul (2.0-6.9) 06/22/19 05:00 Lymph # (Auto) 2.7 K/uL (0.60-3.4) 06/22/19 05:00 [place] # (Auto) 0.8 K/uL (0.4-2.0) 06/22/19 05:00 Eos # (Auto) 0.5 K/ul (0.0-0.7) 06/22/19 05:00 Baso # (Auto) 0.1 K/uL (0-0.2) 06/22/19 05:00 ESR 38 mm/hr (0-15) H 06/21/19 18:28 Sodium 136.9 mmol/L (134.5-145) 06/22/19 05:00 Potassium 3.94 mmol/L (3.5-5.1) 06/22/19 05:00 Chloride 104.9 mmol/L (98-107) 06/22/19 05:00 Carbon Dioxide 28.1 mmol/L (22-30.0) 06/22/19 05:00 Anion Gap 7.84 06/22/19 05:00 BUN 10.1 mg/dL (9-20) 06/22/19 05:00 Creatinine 0.62 mg/dL (0.60-1.10) 06/22/19 05:00 Estimated GFR (MDRD) 138.00 mL/min 06/22/19 05:00 BUN/Creatinine Ratio 16.29 06/22/19 05:00 Glucose 209.5 mg/dL (74-106) H 06/22/19 05:00 Hemoglobin A1c 8.82 (4.0-6.0) H 06/21/19 18:28 Lactic Acid 1.21 mmol/L (0.7-2.1) 06/21/19 18:28 Calcium 8.55 mg/dL (8.4-10.2) 06/22/19 05:00 Total Bilirubin 0.45 mg/dL (0.2-1.3) 06/21/19 18:28 AST 43.1 U/L (17-59) 06/21/19 18:28 ALT 32.8 U/L (0-50) 06/21/19 18:28 Alkaline Phosphatase 129.8 U/L (38-126) H 06/21/19 18:28 Total Protein 7.67 g/dL (6.3-8.2) 06/21/19 18:28 Albumin 3.98 g/dL (3.5-5.0) 06/21/19 18: Globulin 3.69 06/21/19 18:28 Albumin/Globulin Ratio 1.07 06/21/19 18:28 Triglycerides 302.5 mg/dL (0-150) H 06/22/19 05:00 Cholesterol 130.9 mg/dL (0-200) 06/22/19 05:00 LDL Cholesterol, Calc 51 mmol/L 06/22/19 05:00 VLDL Cholesterol 61 mg/dL (2-30) H 06/22/19 05:00 HDL Cholesterol 19.8 mg/dL (35-60) L 06/22/19 05:00 Cholesterol/HDL Ratio 6.6 (4.5-6.4) H 06/22/19 05:00 Procalcitonin < 0.05 ng/mL (<0.05) 06/21/19 18:28 CT of foot was done and reviewed and chronic appearing ossesous erosion/ destruction of the fifth DIP joint with smooth cortical margins. Correlate with old injury or infection. Comparison with prior iamging would be helpful. IF there is concern for acute osteomyelitis recommend MRI for further eval. Xray of foot was completed absence of distal aspect of fifth proximal phalanx may be old injury. Infectious destructive process not excluded. No previous studies. Mild OA of IP joints. NO gross soft tissue gas or foreign body noted. Education Provided to Patient and Family: 1. Metformin 2. Steglatro 3. Lisinopril/HCTZ 4. Lipitor 5. ASA 81 mg EC 6. Td booster 7. Diabetes 8. DM foot care 9. How to check sugars Follow-ups: 1. Dr. Lilly 1 week 2. Wound care this sunday 3. Outpatient podiatry referral encouraged 4. Community Education Specialist. Disposition: HOME SELF-CARE Hospital Course: 49 yo male presented to ED for wound check 18:13 06/21/[address] Macias. No primary provider. Arrived via ambulatory status, infromation obtained from patient. Vitals in ED were temp 97.3, pulse 92, rr 20, bp 153/89, pulse ox 96% on RA (accidental 6%). CBC mild elevation with 11.41, hgb 14.5, plt 327, neutrophilia listed at 7.2 CMP showed sodium 137.7, K+ 3.93, cl 102,9 , co2 28, gap 10.73, cr 0.63, gfr 135, glucose 180.9, Lactate negative at 1.21, Procalcitonin negative at <.05. Calcium normal 8.97. Alk phos up minimally at 129.8. ESR was up at 38 and A1C 8.82. Patient never dx w/ diabetes before, newly diagnosed today with a1c >6.5. He was found to have a wound on the right ball of the foot plantar surface, painful minimally, aggravated by touch and by pressure, draining, still present currently. No previou sissues/episodes, no trauma, no foreign bod, no bites/stings, no med changes, no history of MRSA historically. The patient has erythema of the lower leg, wet ulceration 3cm diameter, macerated 1.5 cm beyond that. No tenderness, no drainage/palpation. DDx in ED cellulitis vs infection of DM foot ulcer. History of TBI with reconstruction of face. Current light tobacco user. Vitals did not meet SIRS criteria, nor did the WBC. He was given tylenol in ED, lovenox was given for hosptial stay. I was contacted by DR. Macias at 1945 and discussed case 1:1. Patient will get 10 units of lantus tonight. He will also get metformin 500 BID to start now. CT of foot was done and reviewed and chronic appearing ossesous erosion/destruction of the fifth DIP joint with smooth cortical margins. Correlate with old injury or infection. Comparison with prior iamging would be helpful. IF there is concern for acute osteomyelitis recommend MRI for further eval. Xray of foot was completed absence of distal aspect of fifth proximal phalanx may be old injury. Infectious destructive process not excluded. No previous studies. Mild OA of IP joints. NO gross soft tissue gas or foreign body noted. Patient was given percocet 10 po TID for pain, he was given zosyn 3.375 grams and vanco 1 gram in the ED. Due to risks on renal function, I will stop the zosyn and I will change him to cefepime 2grams q 8 hours and continue vanco 1gram BID (15-20mg/kg q 8-12 hours). I will make sure wound cultures are collected, will likely d/c on bactrim DS and augmentin 875 BID to cover for staph/strep, MRSA, aerobic gram negatives and anaerobic bacteria. He will need close f/u, diabetic education, glucometer, walking boot to offload that foot, outpatient referral to podiatry and likely wound care. Regarding DM, I believe that he would benefit from SGLT2 and from GLP1 with metformin, I will add lisinopril to him as his BP is mildly elevated as well. We will check microalbumin. I will make sure that his tetanus status is up to date. He has declined pneumonia vaccine despite R/B/A to this agent. We will also check a lipid panel in the am and likely start him on statin. Patient seen in room 216 06/21/19 9:12 pm. Here with tameka (niece), her daughter brenna and partner Hazel. Patient has been diabetic for a while. follows with pain management q 3 months. Last visit here was 2013 or 2014. The patient met with a provider in [place] but could not remember her name. He met with them 2 years ago for DM but never f/u with them. He has history of TBI with reconstruction. the patietn has never been dx with diabetes. He has been checking his sugars. Fasting sugars in the am 230. Niece found about his ulcer on his left foot today but it has been present for 2 weeks. He smokes about 1 pack per day. He is not interested in quitting, he is not interested in nicotine patches. I asked him what he thought about his health and he is unreal about his expectations. The patient and I talked about the lack of circulation, the poor sugar control, will lead to loss of toe/foot/knee. Discussed nicotine at length. He noted several times "I will go out and smoke no matter what you say." I discussed we are smoke free campus and noted that if he leaves to smoke, we would consider him AMA. He noted he did not care and he would leave anyway. I talked with them for 15 minutes today about need to think about overall health, foot health, diabetes, HTN. He just lost his twin brother to DM/HTN/Hyperlipidemia. ?H/o Seizures. I discussed need for compliance, need for being on board with medical therapy. He noted that he was not going to quit smoking no matter what I said and he would go smoke now. I discussed that tobacco issues have led to his foot care. He was not able to care about this and did not want to focus on his overall health. After leaving room, niece came out and noted that if I gave a valium and a nicotine patch he would take the patch and try to stay. I placed these orders in good-alex effort to help patient. We will get foot culture, we will place 21mg nicotine patch, valium 5mg once. He noted he will leave this hospital to smoke if he feels he needs to. He was given the 5mg valium and took nicotine patch and did well overnight. This am no c/o. No foot pain,nof ever. Vitals NL/stable. RR 18-20 afebrile 97.3 -98 degrees. Not on tele. He has glucometer at home, he has strips/lancets. WE will d/c with liptior, zestoretic, metformin/steglatro and he agreed with plan. He does not want to stay anymore. He will work on smoking cessation. We discussed offloading the food. He has crutches. Not able to get walking boot today, will refer to podiatry, will refer to wound care, will see in clinic again in next 5-7 days. Based on current guidelines the patient has a 31.8 % risk of heart attack/cardiac event over the next 10 years. Recent studies suggest that when values are greater than 7.5% clinicians should consider/ discuss statin therapy with the patient as a way to reduce risks of heart attack and potentially stroke. Other potential improvements can be made by smoking cessation, healthy weight loss, regular exercise/activity, blood pressure management and cholesterol management as these are modifiable risk factors. Lifestyle changes- Dietary reduction in total calories encouraged. Healthier choices included baked instead of fried foods, more green leafy vegetables, fruits, whole grain carbohydrates, fish, nuts. Try to avoid eating out/fast food, walking minimum 5/7 days 15 minutes at a pace difficult to carry a conversation. Regular physical activity can then be escalated as able. If chest pain stop exercise plan and f/u with office. Consider meeting with weed control inspector/educator. Consider utilizing known diets like DASH plan and the AHA DM diet. Would benefit from high potency statin to include atorvastatin 40mg # 30. This was sent to his pharmacy. He is adamant about leaving hospital today. We talked about ASA, I will start EC 81mg as USPSTF guidelinss suggest possible benefit to this agent base don his history. We discussed BP and goal of <140/ 90. I will start sachin/HCTZ combination. R/B/A to these d/w patient. This am his labs showed WBC 9.12, hgb 14, plt 304. A1C noted at 8.82. His metabolic panel was okay at K+ 3.94, Glucose 209.5. Accucheck yesterday 124/210. He did get lantus 10 last night, lisinopril 20mg last night. Lipids this am trigly 302.5, chol 130, LDL 51, hdl 19.8. REgular exercise, portion control and restrictive calories encouraged. Recommended outpatient weed control inspector. Outpatient wound care and outpatient podiatry. Tetanus prior to d/c. Day of d/c physical exam: Vital Signs - 24 hr 06/21/19 06/21/19 06/21/19 18:05 20:17 21:43 Temperature 97.3 F L 98.0 F 98.0 F Pulse Rate 92 H 85 85 Respiratory 20 20 20 Rate Blood Pressure 153/89 H 176/97 H O2 Sat by Pulse 6 L 99 99 Oximetry 06/22/19 05:14 Temperature 97.9 F Pulse Rate 84 Respiratory 18 Rate Blood Pressure 164/93 H O2 Sat by Pulse 98 Oximetry Constitutional: Appearance-No acute distress, Consistent with stated age. Orientation- Oriented x 3, alert Build and Nutrition-[Obese BMI 31.5. ] General - Patient is pleasant and cooperative with the interview and exam. Numerous tattoo. Less forceful about tobacoo today Prominent onychomycosis. Needs to work on toenails. Foot ulcer base of digit 1 on left. CHEST/LUNG: Inspection- symmetric chest wall no pectus deformity. Normal effort , no distress, no use of accessory muscles. Palpation- nontender sternum, ribline. No abnormal pulsations. Auscultation- Breath sounds normal throughout all lung [place]. Normal tracheal sounds, Normal bronchial sounds overlying sternum, Bronchovessicular sounds normal between scapulae posteriorly, Normal vessicular breath sounds heard throughout periphery. Lungs are clear today. Adventitious sounds- No wheezes, rales, rhonchi. CARDIOVASCULAR: Carotid artery- normal, no bruits or abnormal pulsations. Jugular vein- no pulsations. Palpation/Percussion- Normal PMI, no palpable thrill Auscultation- Regular rate and rhythm. No murmur noted in sitting, supine positions. Extremities- no digital clubbing, cyanosis, edema, increased warmth. ABDOMEN: Inspection- normal and no visible pulsations. Normal contour. Auscultation- Bowel sounds normal, no abdominal bruits. Palpation/Percussion- soft, non-tender, no rebound tenderness, no rigidity (guarding), no jar tenderness, no masses. Liver-no hepatomegaly, Spleen no splenomegaly, Hernias - none. Rectal not examined. Peripheral Vascular: Upper extremity Left- Normal temperature with pink nailbeds and no ulcerations. Upper extremity Right- Normal temperature with pink nailbeds and no ulcerations. Lower extremity- Normal temperature with pink nailbeds and no ulcerations. Decreased goldman hair/decreased pedal hair. stasis dermatitis along left anterior goldman. DP pulses 1+ bilaterally. Decreased monofilament 10/10. capillary refill normal. Ulcer base of left digit 1 with 3cm diameter and 5 cm total maceration/involvement. Edema- trace edema. Stasis dermatitis left>right goldman. NO e/o cellulitis. Musculoskeletal: Generalized-No generalized swelling or edema of extremities, no digital clubbing or cyanosis, neurovascularly intact all four extremities. Neurological: General- Moves all 4 extremities symmetrically. Symmetrical face and body posture. Cranial nerves- individually evaluated II-XII and intact. PERRLA, Normal EOMI, visual/special senses appear intact, Face is symmetrical and normal sensation/movement, normal tongue, normal strength/posture of neck musculature. Decreased sensation along bilateral foot/heel below the ankles. Neuropsych: Oriented- Person, place, time. (AAOx3), Mood/affect- Pleasant this am. Less angry about tobacco. Stilll in denial about his overall health. Speech-Normal speech, normal rate, normal tone, reduced use of language, volume and coherence. Thought content- Mildly reduced/limited. Associations- intact, no SI/HI, no hallucinations, delusions, obsessions. Not interested in dying. Judgment/insight- Questionable Knowledge- Questionable, but seems to have age appropriate fund of knowledge, concentration and attention span normal. Lymphatic: Head/Neck- normal size and non tender to palpation. Axillary- normal size and non tender to palpation. Femoral and Inguinal- normal size and non tender to palpation. Plan: Diabetes: 1. Take Metformin 1000mg 1/2 tablet 2x daily x 7 days then increase to 1/2 tablet in morning and 1 full tablet in evening x 7 days then 1 full pill twice daily. 2. Take steglatro 5mg #1 tablet daily. 3. Check blood sugar every day before eating food. Write this value down in a notebook daily and bring to your visits. 4. We will refer to diabetic education 5. Diabetic diet encouraged 6. Discussed side effects of the above medications, risks/benefits/options 7. Stressed need for compliance. Elevated Blood Pressures: 1. Take new blood pressure medication daily. 2. Follow up in 1 week to repeat laboratory assessment. 3. Discussed side effects of the above medications, risks/benefits/options. Cholesterol: 1. Take new cholesterol medication at night. 2. Call if any new leg cramps. 3. Discussed recommendation from current guidelines and the support of moderate intensity statin with ultimate goal of 30-50% reduction in LDL. With his history we will start with lipitor 40mg. 4. Discussed some of the major side effects typically reported can include muscle cramps and pain, kidney and liver changes and diabetes. We will monitor blood work for kidney/liver. 5. Take Medication at night. If any muscle cramps call clinic. Foot Wound: 1. Discharge with antibiotic Augmentin 875/125. Please take this twice daily until gone. 2. Discharge with antibiotic Bactrim DS. Please take this twice daily until gone. 3. Refer to podiatry. 4. Refer to wound care. 5. Patient has crutches/cane at home he will stay off foot. Discussed walking boot/offloading foot. 6. Tetanus booster before leaving hospital. Smokin. He agreed to nicoderm. 2. The risks and hazards of continued tobacco abuse were discussed with the patient today and total tobacco cessation as recommended. 3. Tobacco usage will adversely affect overall morbidity and mortality of the patient. Patient was informed that tobacco use can lead to numerous cancers, worsening of cardiovascular and pulmonary systems and that lung damage is often permanent and irreversible. 4. Recommended to pick a quit date 5. Discussed benefits and risks to nicotine patches, gum, lozenges, inhaler. 6. http://smokefree.gov/smokefreetxt/ 7. www.heart.org Smoking cessation resources 8. 1 800 QUIT NOW number d/w patient. 9. [place] quit line handout considered. Phone number Obesity: Discussed the federal guidelines suggest a healthy goal BMI of 18.5-24.9 for people 18-65 and 23-30 for people age 65 and older. Overweight is considered BMI 25-30, Obesity 30-40 and Morbid obesity is defined as >100 lb overweight or BMI >40. With a BMI above goal, it is recommended to utilize a diet/exercise program to get back into the appropriate range. Consider referral to weed control inspector. For BMI >40 consider referral to bariatrics. If not already monitoring intake. I would recommend at least to keep a food diary. Document everything that is consumed into a food diary. Studies have shown that patients can lose up to 2x the weight by keeping track of foods. Offered handout on weight loss techniques. Apps that may be of benefit include [employer] Pal, Lose it. Regular exercise encouraged. Start with walking 5-10 minutes at a pace that is difficult to carry a conversation. If chest pain/SOA stop and follow-up in office. Activity: Ad gloria try to keep weight off left pad of foot as much as possible. Diet: Diabetic Return to ED if worsening s/sx of infection or new symptoms. >30 minutes spent in discharge today.
[2019-06-22] MEDS ORDERED: VANCOMYCIN 1 GM in SODIUM CHLORIDE 250 ML IV SCH (09:00)
[2019-06-22] MEDS ORDERED: LOVENOX SUBCUT SCH (09:00)
[2019-06-22] MEDS ORDERED: ZESTRIL PO SCH (09:00)
[2019-06-22] MEDS ORDERED: MAXIPIME 2 GM/50 ML D5W 2 GM in PREMIX 50 ML D5W 1 BAG IV SCH (13:00)
== END 2019-06-22 10:25 | disposition home or self-care (01) | DRG 603 ==
LOC: ED 18:04 → MEDSURG B 20:00
PROVIDERS: ADMIT Family Medicine; ATTEND Family Medicine
DX: L03.116 Cellulitis of left lower limb (principal); E11.621 Type 2 diabetes mellitus with foot ulcer; S91.309A Unspecified open wound, unspecified foot, initial encounter; I87.2 Venous insufficiency (chronic) (peripheral); E78.2 Mixed hyperlipidemia; F41.9 Anxiety disorder, unspecified; F17.210 Nicotine dependence, cigarettes, uncomplicated; R03.0 Elevated blood-pressure reading, without diagnosis of hypertension; R73.9 Hyperglycemia, unspecified; Z72.0 Tobacco use; Z68.31 Body mass index [BMI] 31.0-31.9, adult
CPT/HCPCS: 36415; 80048; 80053; 80061; 82962; 83036; 83605; 84145; 85025; 85651; 86140; 87040; 87070; 87186; 90714; 96365; 99284

== ENCOUNTER 2019-07-03 11:07 | Outpatient (CLI) | payer OTHER | END 2019-07-03 11:08 | disposition home or self-care (01) | LOC: RHC-LAB 11:07 → FCC-LAB 11:08 | PROVIDERS: ATTEND Family Medicine | DX: E11.9 Type 2 diabetes mellitus without complications (principal); I10 Essential (primary) hypertension | CPT/HCPCS: 82043 ==